=== PATIENT | male | born 2000 | race Hispanic/Latino ===

== ENCOUNTER 2022-04-07 01:29 | Emergency (ER) | payer MEDICAID, OTHER ==
[~2022-04-07] VITALS: Ht 175.3 cm; Wt 97.5 kg
[2022-04-07 01:57] LABS: BASOPHILS % (AUTO) 0.4 % (0.0-5.0); EOSINOPHILS % (AUTO) 0.3 % (0.0-8.0); HEMATOCRIT 43.5 % (42-54); LYMPHOCYTES % (AUTO) 14.6 % (21.0-51.0); MEAN CORPUSCULAR HEMOGLOBIN 31.5 pg (27.0-33.0); MEAN CORPUSCULAR HGB CONC 34.9 g/dL (32.0-36.0); MEAN CORPUSCULAR VOLUME 90.2 fL (79-99); MONOCYTES % (AUTO) 14.6 % (3.0-13.0); NEUTROPHILS % (AUTO) 69.7 % (40.0-77.0); PLATELET COUNT (AUTO) 200 K/uL (130-400); RED BLOOD CELL COUNT(AUTO) 4.82 MIL/uL (4.50-6.20); RED CELL DISTRIBUTION WIDTH 12.6 % (11.0-15.5); WHITE BLOOD COUNT (AUTO) 11.1 K/uL (4.8-10.8)
[2022-04-07 01:58] LABS: APPEARANCE,URINE Clear (CLEAR); BILIRUBIN,URINE Negative (NEGATIVE); COLOR,URINE Yellow (YELLOW); GLUCOSE, URINE (UA) Negative (NEGATIVE); KETONES,URINE Negative (NEGATIVE); LEUKOCYTE ESTERASE ,URINE Negative (NEGATIVE); NITRATE,URINE Negative (NEGATIVE); OCCULT BLOOD,URINE Negative (NEGATIVE); PH,URINE 7.5 (5.0-8.0); PROTEIN,URINE Trace mg/dL (NEGATIVE)
[2022-04-07] MEDS ORDERED: ACETAMINOPHEN 500 MG TABLET PO ONE (02:00)
[2022-04-07] MEDS ORDERED: 0.9%NACL 1000ML 1,000 ML IV SCH (02:00)
[2022-04-07 02:04] LABS: CREATININE 1.2 mg/dL (0.5-1.5); POTASSIUM 3.6 mmol/L (3.5-5.1)
[2022-04-07 02:05] LABS: AMPHET/METH SCREEN,URINE NEGATIVE (NEGATIVE); BARBITURATE SCREEN, URINE NEGATIVE (NEGATIVE); BENZODIAZEPINES SCREEN,URINE NEGATIVE (NEGATIVE); CANNABINOID SCREEN,URINE NEGATIVE (NEGATIVE); COCAINE SCREEN,URINE NEGATIVE (NEGATIVE); OPIATE SCREEN,URINE NEGATIVE (NEGATIVE); PHENCYCLIDINE SCREEN,URINE NEGATIVE (NEGATIVE)
[2022-04-07 02:09] LABS: ALBUMIN 3.5 g/dL (3.5-5.0); BILIRUBIN,TOTAL 0.2 mg/dL (0.2-1.0); TOTAL PROTEIN, SERUM 7.7 g/dL (6.0-8.3)
[2022-04-07] MEDS ORDERED: AMPICILLIN/SULBAC 1.5GM VIAL IV STA (03:00)
[2022-04-07] MEDS ORDERED: UNASYN 1.5GM+NS 100ML IV ONE (03:00)
[2022-04-07] MEDS ORDERED: AMOX1TAB16 PO (03:22)
[2022-04-07] MEDS ORDERED: OXYM15MI2 NS (03:22)
[2022-04-07] MEDS ORDERED: IBUP-2077 PO (03:25)
[2022-04-07 03:40] VITALS: BP 131/63
== END 2022-04-07 03:41 | disposition home or self-care (01) ==
LOC: EDH 01:29
DX: J01.00 Acute maxillary sinusitis, unspecified (principal); Z20.822 Contact with and (suspected) exposure to COVID-19
CPT/HCPCS: 36415; 80053; 80305; 81003; 83605; 85025; 87040 ×2; 87635; 87804 ×2; 87880; 93005; 96365; 99284; C9803; J0295

== ENCOUNTER 2022-07-13 02:20 | Emergency (ER) | payer OTHER ==
[~2022-07-13 02:20] MED LIST: AMOX1TAB16 PO; IBUP-2077 PO; OXYM15MI2 NS
[2022-07-13 02:27] VITALS: BP 136/71
== END 2022-07-13 02:32 ==
LOC: EDH 02:20
DX: Z02.83 Encounter for blood-alcohol and blood-drug test (principal); Z65.3 Problems related to other legal circumstances; Z79.1 Long term (current) use of non-steroidal anti-inflammatories (NSAID)
CPT/HCPCS: 99281